=== PATIENT | female | born 1985 | race African-American/Black ===

== ENCOUNTER 2023-07-16 08:59 | Observation (INO) | payer OTHER ==
[~2023-07-16] VITALS: Ht 165.1 cm; Wt 100.2 kg
[2023-07-16] VITALS (7 sets, daily range): BP systolic 129–141; BP diastolic 69–89; TEMP 96.5–97.6; O2SAT 96–99
[~2023-07-16 08:59] MED LIST: ACET325C5 PO; BIOT1CAP2 PO; COLA100C5 PO; CYMB1CAP4 PO; D31000CA4 PO; FERR325T81 PO; MAGN64TASA PO; SUMA50TA2 PO; UNRESOLVED CLARIFICATION ENTRY XX SCH; VITA500C24 PO
[2023-07-16] MEDS ORDERED: LR 1,000 ML IV SCH ×2 (09:40→14:00)
[2023-07-16] MEDS ORDERED: ACETAMINOPHEN *IV* 1,000 MG in IV 1 EA IV ONE (10:05)
[2023-07-16] MEDS ORDERED: ceFAZolin SOD 2 GM in IV 1 EA IV ONE (10:05)
[2023-07-16 10:13] LABS: HEMATOCRIT 29.9 % (36.0-47.0); HEMOGLOBIN 8.9 g/dl (12.0-15.5); MEAN CORPUSCULAR HEMOGLOBIN 19.9 pg (27.0-33.0); MEAN CORPUSCULAR HGB CONC 29.8 g/dl (32.0-36.5); MEAN CORPUSCULAR VOLUME 66.9 fl (80.0-96.0); PLATELET COUNT, AUTOMATED 377 10^3/uL (150-450); RED BLOOD COUNT 4.47 10^6/uL (4.00-5.40); WHITE BLOOD COUNT 7.4 10^3/uL (4.0-10.0)
[2023-07-16 10:42] LABS: ALBUMIN 3.7 G/DL (3.2-5.2); ALKALINE PHOSPHATASE 75 U/L (46-116); ALT/SGPT 18 U/L (7.0-40); AST/SGOT 14 U/L (<34); BILIRUBIN,TOTAL 0.7 MG/DL (0.3-1.2); BLOOD UREA NITROGEN 8 MG/DL (9-23); CALCIUM LEVEL 9.3 MG/DL (8.5-10.1); CARBON DIOXIDE LEVEL 28 MMOL/L (20-31); CHLORIDE LEVEL 107 MMOL/L (98-107); GLOMERULAR FILTRATION RATE > 60.0 (>60); GLUCOSE, FASTING 82 MG/DL (60-100); HCG, SERUM QUALITATIVE NEGATIVE (NEGATIVE); POTASSIUM SERUM 3.6 MMOL/L (3.5-5.1); SODIUM LEVEL 141 MMOL/L (136-145); TOTAL PROTEIN 7.1 G/DL (5.7-8.2)
[2023-07-16] MEDS ORDERED: KETOROLAC 60MG 2ML VIAL As Ordered ONE (10:52)
[2023-07-16] MEDS ORDERED: MIDAZOLAM INJ 2MG/2ML VIAL As Ordered ONE (10:52)
[2023-07-16] MEDS ORDERED: ROCURONIUM BROMIDE 50MG/5ML VIAL As Ordered ONE ×2 (10:52→13:17)
[2023-07-16] MEDS ORDERED: ONDANSETRON 4MG 2ML VIAL As Ordered ONE (10:52)
[2023-07-16] MEDS ORDERED: LIDOCAINE 2% 100MG/5ML SDV (FOR ANES.) As Ordered ONE (10:52)
[2023-07-16] MEDS ORDERED: propofoL 200 MG/20 ML VIAL As Ordered ONE (10:52)
[2023-07-16] MEDS ORDERED: fentaNYL 100 MCG/2 ML INJECTION As Ordered ONE ×2 (10:52→12:05)
[2023-07-16] MEDS ORDERED: SUGAMMADEX SODIUM 500 MG/5 ML VIAL (BRIDION) As Ordered ONE (10:52)
[2023-07-16] MEDS ORDERED: ACETAMINOPHEN 1000MG 100ML IV BAG As Ordered ONE (11:58)
[2023-07-16] MEDS ORDERED: VASOPRESSIN INJ 20UNITS/ML 1ML VIAL As Ordered ONE (12:28)
[2023-07-16] MEDS ORDERED: HYDROmorphone HCL 2MG/ML 1ML VIAL As Ordered ONE (13:52)
[2023-07-16] MEDS ORDERED: ONDANSETRON 4MG 2ML VIAL IV PRN (14:00)
[2023-07-16] MEDS ORDERED: oxyCODONE 5MG TAB PO PRN ×2 (14:00→14:20)
[2023-07-16] MEDS ORDERED: MORPHINE 2 MG/ML 1ML VIAL IV PRN (14:20)
[2023-07-16] MEDS ORDERED: PROMETHAZINE 25MG/ML 1ML VIAL IV PRN (14:20)
[2023-07-16] MEDS: fentaNYL 100 MCG/2 ML INJECTION IV PRN ×2 (14:25→14:33)
[2023-07-16] MEDS: HYDROMORPHONE HCL 0.5 MG/ 0.5 ML SYRINGE IV PRN ×4 (14:48→15:30)
[2023-07-16] MEDS: ACETAMINOPHEN 500 MG TAB PO PRN (18:16)
[2023-07-16] MEDS: LR 1,000 ML IV SCH ×2 (18:17→21:37)
[2023-07-16] MEDS ORDERED: LR 500 ML IV ONE (18:35)
[2023-07-16] MEDS: DOCUSATE SODIUM 100MG CAPSULE PO SCH (21:37)
[2023-07-16] MEDS: oxyCODONE 5MG TAB PO PRN (21:42)
[2023-07-16] MEDS: SIMETHICONE 80MG CHEW TAB PO PRN (21:57)
[2023-07-16] MEDS: KETOROLAC 30 MG/ML 1ML VIAL IV SCH (21:58)
[2023-07-17] VITALS: BP 119/66; TEMP 97.3; O2SAT 94
[2023-07-17] MEDS: ACETAMINOPHEN 500 MG TAB PO PRN ×3 (00:23→13:58)
[2023-07-17] MEDS: SIMETHICONE 80MG CHEW TAB PO PRN (04:59)
[2023-07-17 05:00] VITALS: BP 118/60; TEMP 97.7; O2SAT 99
[2023-07-17] MEDS: KETOROLAC 30 MG/ML 1ML VIAL IV SCH ×2 (05:00→10:01)
[2023-07-17] MEDS: oxyCODONE 5MG TAB PO PRN ×2 (07:26→13:59)
[2023-07-17 07:52] LABS: BASO % 0.2 % (0.0-1.0); EOS % 0.1 % (0.0-3.0); HEMATOCRIT 29.8 % (36.0-47.0); HEMOGLOBIN 8.9 g/dl (12.0-15.5); LYMPH % 17.6 % (24.0-44.0); MEAN CORPUSCULAR HGB CONC 29.9 g/dl (32.0-36.5); MEAN CORPUSCULAR VOLUME 67.1 fl (80.0-96.0); MONO # 0.9 10^3/uL (0.0-0.8); MONO % 7.9 % (2.0-8.0); NEUTROPHILS # 8.6 10^3/uL (1.5-8.5); NEUTROPHILS % 73.9 % (36.0-66.0); PLATELET COUNT, AUTOMATED 398 10^3/uL (150-450); RED BLOOD COUNT 4.44 10^6/uL (4.00-5.40); WHITE BLOOD COUNT 11.6 10^3/uL (4.0-10.0)
[2023-07-17] MEDS: DOCUSATE SODIUM 100MG CAPSULE PO SCH (08:21)
[2023-07-17 08:30] VITALS: BP 127/60; TEMP 97.6; O2SAT 97
[2023-07-17 12:15] VITALS: BP 112/66; TEMP 97.1; O2SAT 97
== END 2023-07-17 15:15 | disposition home or self-care (01) ==
LOC: M OR 08:59 → INTOOBSV 08:59 → EDSTATUS 10:45 → M PED 16:15
PROVIDERS: ADMIT Obstetrics & Gynecology; ATTEND Obstetrics & Gynecology
DX: D25.1 Intramural leiomyoma of uterus (principal); N73.6 Female pelvic peritoneal adhesions (postinfective); F43.10 Post-traumatic stress disorder, unspecified; D64.9 Anemia, unspecified; F41.9 Anxiety disorder, unspecified; F32.A Depression, unspecified; G43.909 Migraine, unspecified, not intractable, without status migrainosus; Z79.899 Other long term (current) drug therapy
CPT/HCPCS: 36415; 58146; 80053; 84703; 85025; 85027; 86850; 86900; 86901; 87635; 88305; 96361; 96374; 96376; J0131; J0690; J1100; J1170; J1885; J2250; J2405; J2598; J3010

== ENCOUNTER 2023-09-14 22:54 | Emergency (ER) | payer OTHER ==
[~2023-09-14] VITALS: Ht 162.6 cm; Wt 100.8 kg
[~2023-09-14 22:54] MED LIST changes: -UNRESOLVED CLARIFICATION ENTRY XX SCH
[2023-09-15 00:32] LABS: URINE PREG TEST NEGATIVE (NEGATIVE)
[2023-09-15 04:22] LABS: BASO # 0.1 10^3/uL (0.0-0.2); BASO % 0.5 % (0.0-1.0); EOS # 0.1 10^3/uL (0.0-0.5); EOS % 1.3 % (0.0-3.0); HEMATOCRIT 34.5 % (36.0-47.0); HEMOGLOBIN 10.7 g/dl (12.0-15.5); LYMPH # 3.6 10^3/uL (1.5-5.0); LYMPH % 39.4 % (24.0-44.0); MEAN CORPUSCULAR HEMOGLOBIN 22.6 pg (27.0-33.0); MEAN CORPUSCULAR VOLUME 72.9 fl (80.0-96.0); MONO # 0.5 10^3/uL (0.0-0.8); MONO % 5.9 % (2.0-8.0); NEUTROPHILS # 4.9 10^3/uL (1.5-8.5); NEUTROPHILS % 52.7 % (36.0-66.0); PLATELET COUNT, AUTOMATED 357 10^3/uL (150-450); RED BLOOD COUNT 4.73 10^6/uL (4.00-5.40); WHITE BLOOD COUNT 9.2 10^3/uL (4.0-10.0)
[2023-09-15 04:33] VITALS: TEMP 98
[2023-09-15 04:43] LABS: BLOOD UREA NITROGEN 13 MG/DL (9-23); CALCIUM LEVEL 9.6 MG/DL (8.5-10.1); CARBON DIOXIDE LEVEL 24 MMOL/L (20-31); CHLORIDE LEVEL 108 MMOL/L (98-107); CREATININE FOR GFR 0.59 MG/DL (0.55-1.30); GLOMERULAR FILTRATION RATE > 60.0 (>60); GLUCOSE, FASTING 94 MG/DL (60-100); POTASSIUM SERUM 4.1 MMOL/L (3.5-5.1); SODIUM LEVEL 141 MMOL/L (136-145)
[2023-09-15] MEDS ORDERED: KETOROLAC 30 MG/ML 1ML VIAL IV ONE (06:35)
[2023-09-15] MEDS ORDERED: ISOVUE-370 76% 100ML VIAL As Ordered ONE (06:47)
[2023-09-15 06:51] LABS: LIPASE 37 U/L (12-53)
[2023-09-15 06:53] LABS: ALKALINE PHOSPHATASE 80 U/L (46-116); ALT/SGPT 15 U/L (7.0-40); AST/SGOT 13 U/L (<34); BILIRUBIN,DIRECT < 0.1 MG/DL (<0.4); BILIRUBIN,TOTAL 0.3 MG/DL (0.3-1.2); TOTAL PROTEIN 7.6 G/DL (5.7-8.2)
[2023-09-15] MEDS ORDERED: ACETAMINOPHEN 500 MG TAB PO ONE (10:45)
[2023-09-15] MEDS ORDERED: IBUP80TA PO (11:40)
[2023-09-15 12:33] VITALS: BP 133/83; O2SAT 98
== END 2023-09-15 12:36 | disposition home or self-care (01) ==
LOC: M ED 22:54
DX: N84.0 Polyp of corpus uteri (principal); N83.9 Noninflammatory disorder of ovary, fallopian tube and broad ligament, unspecified; M79.605 Pain in left leg; M54.50 Low back pain, unspecified; R51.9 Headache, unspecified
CPT/HCPCS: 72131; 74177; 76856; 80048; 80076; 81001; 83690; 84703; 85025; 93976; 96374; 99283; J1885; Q9967

== ENCOUNTER 2023-12-25 05:59 | Day surgery (SDC) | payer OTHER ==
[~2023-12-25] VITALS: Ht 165.1 cm; Wt 102.5 kg
[~2023-12-25 05:59] MED LIST changes: +IBUP80TA PO; +LEXA5TAB13 PO; +RAME8TAB2 PO
[2023-12-25 06:37] LABS: HEMATOCRIT 30.7 % (36.0-47.0); HEMOGLOBIN 9.4 g/dl (12.0-15.5); MEAN CORPUSCULAR HEMOGLOBIN 22.5 pg (27.0-33.0); MEAN CORPUSCULAR HGB CONC 30.6 g/dl (32.0-36.5); MEAN CORPUSCULAR VOLUME 73.6 fl (80.0-96.0); PLATELET COUNT, AUTOMATED 310 10^3/uL (150-450); RED BLOOD COUNT 4.17 10^6/uL (4.00-5.40); WHITE BLOOD COUNT 5.6 10^3/uL (4.0-10.0)
[2023-12-25] MEDS ORDERED: SILVER NITRATE APPLICATOR (1 = QTY 10) As Ordered ONE (06:37)
[2023-12-25] MEDS ORDERED: LR 1,000 ML IV SCH ×2 (06:40→08:45)
[2023-12-25] MEDS ORDERED: ePHEDrine SULFATE 25 MG/5 ML(5MG/ML) SYRINGE As Ordered ONE (07:01)
[2023-12-25] MEDS ORDERED: dexmedeTOMIDine (4MCG/ML)200MCG/50ML BTL (PRECEDEX) As Ordered ONE (07:01)
[2023-12-25] MEDS ORDERED: ONDANSETRON 4MG 2ML VIAL As Ordered ONE (07:01)
[2023-12-25] MEDS ORDERED: propofoL 200 MG/20 ML VIAL As Ordered ONE (07:01)
[2023-12-25] MEDS ORDERED: PHENYLephrine 500MCG 5ML (100MCG/ML) SYRINGE As Ordered ONE (07:01)
[2023-12-25] MEDS ORDERED: LIDOCAINE 2% 100MG/5ML SDV (FOR ANES.) As Ordered ONE (07:01)
[2023-12-25 07:02] LABS: BLOOD UREA NITROGEN 9 MG/DL (9-23); CALCIUM LEVEL 8.6 MG/DL (8.5-10.1); CARBON DIOXIDE LEVEL 27 MMOL/L (20-31); CHLORIDE LEVEL 107 MMOL/L (98-107); CREATININE FOR GFR 0.64 MG/DL (0.55-1.30); GLOMERULAR FILTRATION RATE > 60.0 (>60); GLUCOSE, FASTING 94 MG/DL (60-100); POTASSIUM SERUM 3.7 MMOL/L (3.5-5.1); SODIUM LEVEL 139 MMOL/L (136-145)
[2023-12-25] MEDS ORDERED: MIDAZOLAM INJ 2MG/2ML VIAL As Ordered ONE (07:02)
[2023-12-25] MEDS ORDERED: fentaNYL 100 MCG/2 ML INJECTION As Ordered ONE (07:02)
[2023-12-25] MEDS ORDERED: KETOROLAC 60MG 2ML VIAL As Ordered ONE (07:13)
[2023-12-25] MEDS ORDERED: ACETAMINOPHEN 1000MG 100ML IV BAG As Ordered ONE (07:41)
[2023-12-25] MEDS: LIDOCAINE 1% SDV 30ML VIAL As Ordered ONE (08:01)
[2023-12-25] MEDS ORDERED: oxyCODONE 5MG TAB PO PRN (08:45)
[2023-12-25] MEDS ORDERED: HYDROMORPHONE HCL 0.5 MG/ 0.5 ML SYRINGE IV PRN (08:45)
[2023-12-25] MEDS ORDERED: fentaNYL 100 MCG/2 ML INJECTION IV PRN (08:45)
[2023-12-25] MEDS ORDERED: ONDANSETRON 4MG 2ML VIAL IV PRN (08:45)
[2023-12-25 11:31] VITALS: BP 137/90; TEMP 98.1; O2SAT 100
== END 2023-12-25 11:45 | disposition home or self-care (01) ==
LOC: M SDC 05:59
PROVIDERS: ATTEND Obstetrics & Gynecology
DX: N84.1 Polyp of cervix uteri (principal); D25.9 Leiomyoma of uterus, unspecified; N85.8 Other specified noninflammatory disorders of uterus; F43.10 Post-traumatic stress disorder, unspecified; Z79.899 Other long term (current) drug therapy
CPT/HCPCS: 36415; 58558; 80048; 81025; 85027; 86850; 86900; 86901; 88305; J0131; J1100; J1885; J2250; J2371; J2405; J3010